=== PATIENT | female | born 1975 | race Caucasian/White ===

== ENCOUNTER 2016-10-18 11:10 | Emergency (ER) | payer SELFPAY ==
[2016-10-18] MEDS ORDERED: RX INFO: IV CONTRAST WAS GIVEN 1 EACH MISC MISCELLANE PRN (12:01)
[2016-10-18 12:29] LABS: Basophils % (A) 0 %; CH 29.4; CHCM 33.6; Eosinophils # (A) 0.1 k/uL (0-0.7); Eosinophils % (A) 1 %; HCT 37.7 % (34.0-46.0); HDW 2.54; HGB 12.3 gm/dL (11.4-16.0); Luc # (Auto) 0.07; Luc % (Auto) 1; Lymphocytes # (A) 1.2 k/uL (1.0-4.8); Lymphocytes % (A) 15 %; MCH 28.8 pg (25.0-35.0); MCHC 32.6 g/dL (31.0-37.0); MCV 88.1 fL (80.0-100.0); Monocytes # (A) 0.4 k/uL (0-1.0); Monocytes % (A) 5 %; Neutrophils % (A) 78 %; RBC 4.28 m/uL (3.80-5.40); RDW 12.9 % (11.5-15.5); WBC 7.7 k/uL (3.8-10.6); WBC (Perox) 8.21
[2016-10-18 12:37] LABS: Potassium 4.5 mmol/L (3.5-5.1)
[2016-10-18 12:40] LABS: Blood Urea Nitrogen 9 mg/dL (7-17); Carbon Dioxide 25 mmol/L (22-30); Chloride 106 mmol/L (98-107); Glucose 90 mg/dL (74-99); Non-African American GFR(MDRD) >60 (>60 ml/min/1.73 sqM)
[2016-10-18 12:41] LABS: Anion Gap 10 mmol/L; Sodium 141 mmol/L (137-145)
--- NOTE | 2016-10-18 12:55 | CT ---
EXAMINATION TYPE: CT soft tissue neck w con DATE OF EXAM: 10/18/2016 12:44 PM COMPARISON: NONE HISTORY: Tooth infection. Right sided jaw pain and swelling CT DLP: 259.20 mGycm Automated exposure control for dose reduction was used. CONTRAST: CT scan of the neck is performed following with IV Contrast, patient injected with 100 ml mL of Omnip aque 300. Axial images are obtained, coronal and sagittal reformatted images are reviewed. FINDINGS: Left thyroid lobe is somewhat diminutive in size and there is a 1 cm nodule within the right lobe of thyroid. Late. Shotty adenopathy seen in the carotid space and submandibular space. Submandibular glands have a normal appearance in the parotid glands demonstrate a normal symmetric ap pearance. Intracranial, intraorbital and retropharyngeal soft tissue structures are symmetric. Minimal changes of chronic sinusitis. Airways patent. Vocal cords have a normal appearance. No abnormal enhancement seen to suggest abscess. IMPRESSION: 1. No acute process. 2. Right thyroid nodule measuring approximately 1 cm there is asymmetric soft tissue tissue edema and ill definition of fat along the right mandible. Correlate for a cellulitis. No definite abscess..
[2016-10-18] MEDS ORDERED: BUPIVACAIN-EPI 0.5%-1:200,000 30 ML VIAL SQ STA (13:32)
--- NOTE | 2016-10-18 14:27 | ED ---
ENT HPI - General Chief complaint: Dental/Oral Stated complaint: tooth pain Time Seen by Provider: 10/18/16 11:26 Source: patient Mode of arrival: ambulatory Limitations: no limitations - History of Present Illness Initial comments: 41-year-old female presented for evaluation of dental pain that started yesterday. She states that the pain is from a tooth on her right lower row at a tooth with previous cavitary lesions. She states yesterday morning she felt fine but throughout the evening she started to have pain in the area. This morning when she woke up there was swelling to her right jaw and increased pain at the tooth. She states that when she looks at the tooth there is no drainage from area and she is unable to palpate a fluctuant area inside the mouth. She denies any tooth fracture and states that she does have a dentist but hasn't seen him in some time. She denies fevers, chills, nausea, vomiting. - Related Data Previous Rx's Medication Instructions Recorded HYDROcodone/APAP 5-325MG [Madison 1 - 2 tab PO Q6HR PRN #14 tab 10/18/16 5-325] Ibuprofen [Motrin] 800 mg PO Q8HR PRN #20 tab 10/18/16 Penicillin V Potassium [Pen Vee K] 500 mg PO QID #28 tab 10/18/16 Allergies Allergy/AdvReac Type Severity Reaction Status Date / Time No Known Allergies Allergy Verified 10/18/16 12:22 Review of Systems ROS Statement: Those systems with pertinent positive or pertinent negative responses have been documented in the HPI. ROS Other: All systems not noted in ROS Statement are negative. Constitutional: Denies: fever, chills, weakness Eyes: Denies: eye pain, eye discharge, vision change ENT: Reports: dental pain. Denies: ear pain, throat pain Respiratory: Denies: cough, dyspnea Cardiovascular: Denies: chest pain, palpitations Gastrointestinal: Denies: abdominal pain, nausea, vomiting Genitourinary: Denies: urgency, dysuria Musculoskeletal: Denies: back pain, myalgia Skin: Denies: rash, lesions Neurological: Denies: headache, weakness Past Medical History Past Medical History: No Reported History History of Any Multi-Drug Resistant Organisms: None Reported Past Surgical History: Tubal Ligation Past Psychological History: No Psychological Hx Reported Smoking Status: Current every day smoker Past Alcohol Use History: Rare Past Drug Use History: None Reported General Exam Limitations: no limitations General appearance: alert, in no apparent distress Head exam: Present: atraumatic, normocephalic Eye exam: Present: normal appearance, PERRL, EOMI Pupils: Present: normal accommodation Expanded Mouth exam: Absent: drooling, trismus, muffled voice Teeth exam: Present: dental caries (Tooth #25 with cavity), dental tenderness # . Absent: fractured tooth # Throat exam: normal inspection Neck exam: Present: normal inspection. Absent: tenderness Respiratory exam: Present: normal lung sounds bilaterally, respiratory distress Cardiovascular Exam: Present: regular rate, normal rhythm GI/Abdominal exam: Present: soft. Absent: distended, tenderness Rectal exam: Present: deferred Neurological exam: Present: alert, altered, oriented X3 Skin exam: Present: warm, dry, intact Course Vital Signs 10/18/16 10/18/16 11:22 14:43 Temperature 97.7 F 98.0 F Pulse Rate 68 79 Respiratory 16 18 Rate Blood Pressure 124/58 121/66 O2 Sat by Pulse 98 98 Oximetry Medical Decision Making - Medical Decision Making 41-year-old female presenting for evaluation of tooth #25 dental pain with swelling to the surrounding soft tissue since yesterday evening. She states that the cavity is been there for some time and that she has a dentist but hasn't been seen for this specific condition. She denies any dental fracture or preceding trauma. Inspection does reveal a large and discolored cavity to the tooth and there is swelling and mild erythema and swelling to the tissue of the cheek and jaw. On palpation it is hard to appreciate any fluctuation but given the etiology will obtain a CT neck with IV contrast and obtain basic labs. She will also be given a inferior alveolar nerve block for pain control. Labs revealed no significant abnormalities and CT neck with IV contrast showed Soft tissue edema and ill-definition of fat along the right mandible. Reevaluation revealed resolution of her symptoms entirely. Given no identifiable abscess we'll discharge patient with pain control and Pen-Vee K antibiotics and instructions to follow-up with her primary care physician and dentist. She is further advised to return to this facility if her symptoms should worsen or persist including but not limited to: Worsening/intractable pain, abscess formation with fluctuance, worsening fever, extension of pain throughout the head, altered mental status, shortness breath, chest pain. The patient acknowledged an understanding of this information and agreed with this plan of care. - Lab Data Result diagrams: 10/18/16 12:22 10/18/16 12:22 Lab Results 10/18/16 10/18/16 Range/Units 12:22 12:22 WBC 7.7 (3.8-10.6) k/uL RBC 4.28 (3.80-5.40) m/uL Hgb 12.3 (11.4-16.0) gm/dL Hct 37.7 (34.0-46.0) % MCV 88.1 (80.0-100.0) fL MCH 28.8 (25.0-35.0) pg MCHC 32.6 (31.0-37.0) g/dL RDW 12.9 (11.5-15.5) % Plt Count 220 (150-450) k/uL Neutrophils % 78 % Lymphocytes % 15 % Monocytes % 5 % Eosinophils % 1 % Basophils % 0 % Neutrophils # 6.0 (1.3-7.7) k/uL Lymphocytes # 1.2 (1.0-4.8) k/uL Monocytes # 0.4 (0-1.0) k/uL Eosinophils # 0.1 (0-0.7) k/uL Basophils # 0.0 (0-0.2) k/uL Sodium 141 (137-145) mmol/L Potassium 4.5 (3.5-5.1) mmol/L Chloride 106 (98-107) mmol/L Carbon Dioxide 25 (22-30) mmol/L Anion Gap 10 mmol/L BUN 9 (7-17) mg/dL Creatinine 0.62 (0.52-1.04) mg/dL Est GFR (MDRD) Af Amer >60 (>60 ml/min/1.73 sqM) Est GFR (MDRD) Non-Af >60 (>60 ml/min/1.73 sqM) Glucose 90 (74-99) mg/dL Calcium 9.0 (8.4-10.2) mg/dL Disposition Clinical Impression: Dental infection, Dental caries Disposition: HOME SELF-CARE Condition: Stable Instructions: Dental Caries (ED), Dental Abscess (ED) Additional Instructions: Please use medication as discussed. Please follow up with family doctor if symptoms have not improved over the next two days. Please return to the emergency room if your symptoms increase or worsen or for any other concerns. Prescriptions: HYDROcodone/APAP 5-325MG [Madison 5-325] 1 - 2 tab PO Q6HR PRN #14 tab PRN Reason: Analgesia Ibuprofen [Motrin] 800 mg PO Q8HR PRN #20 tab PRN Reason: Analgesia Penicillin V Potassium [Pen Vee K] 500 mg PO QID #28 tab Referrals: None,Stated [Primary Care Provider] - 1-2 days Time of Disposition: 14:27
[2016-10-18 14:44] VITALS: BP 121/66; PULSE 79; RESP 18; TEMP 98
== END 2016-10-18 14:44 | disposition home or self-care (01) ==
LOC: EC 11:10
DX: K04.7 Periapical abscess without sinus (principal); K02.9 Dental caries, unspecified; F17.200 Nicotine dependence, unspecified, uncomplicated
CPT/HCPCS: 36415; 80048; 85025; 70491; 64400; 99283; Q9967

== ENCOUNTER 2017-06-12 18:20 | Emergency (ER) | payer OTHER ==
[2017-06-12] MEDS ORDERED: ACETAMINOPHEN TAB 500 MG TAB PO STA (19:03)
--- NOTE | 2017-06-12 19:40 | ED ---
Head Injury HPI - General Chief complaint: Head Injury Stated complaint: fall/hit head Time Seen by Provider: 06/12/17 18:42 Source: patient Mode of arrival: ambulatory Limitations: no limitations - History of Present Illness Initial comments: 41-year-old female patient presents to emergency department today for evaluation after expressing a fall down the stairs. Patient states this occurred approximately 2 hours ago. She states that she was coming down the stairs, missed one step with her foot and fell backwards striking her head on one of the steps. She states that she did have a blackout episode for a few seconds however came around quickly. She states that since then she has had a headache, has felt nauseated, and has been feeling tired. She describes the headache as throbbing. She states that the back of her head is very tender to the touch. She denies any other injuries. She denies any dizziness, weakness, blurred or double vision. Patient denies any neck pain, back pain, chest pain, shortness of breath, dizziness, weakness, numbness, tingling, abdominal pain, nausea, vomiting, or difficulties with bowel movements or urination. - Related Data Home Medications Medication Instructions Recorded Confirmed No Known Home Medications [No 06/12/17 06/12/17 Known Home Medications] Allergies/Adverse reactions: Allergies Allergy/AdvReac Type Severity Reaction Status Date / Time No Known Allergies Allergy Verified 06/12/17 19:08 Review of Systems ROS Statement: Those systems with pertinent positive or pertinent negative responses have been documented in the HPI. ROS Other: All systems not noted in ROS Statement are negative. Past Medical History Past Medical History: No Reported History History of Any Multi-Drug Resistant Organisms: None Reported Past Surgical History: Tubal Ligation Past Psychological History: No Psychological Hx Reported Smoking Status: Current every day smoker Past Alcohol Use History: Rare Past Drug Use History: None Reported General Exam Limitations: no limitations General appearance: alert, in no apparent distress, other (Well-developed, well- nourished adult female in no acute distress. She is alert, interactive and acutely responsive. Vital signs upon presentation were temperature 98.2F, pulse 80, respirations 20, blood pressure 130/60, pulse ox 98% on room air.) Head exam: Present: normocephalic, normal inspection Eye exam: Present: normal appearance, PERRL, EOMI. Absent: scleral icterus, conjunctival injection, periorbital swelling ENT exam: Present: normal exam, normal oropharynx, mucous membranes moist, TM's normal bilaterally (No hemotympanum.), other (No evidence of whitehead sign.) Neck exam: Present: normal inspection, full ROM, other (Nontender, no step-off, no deformity to firm midline palpation of the posterior cervical spine. Full range of motion without pain or limitation.). Absent: tenderness, meningismus, lymphadenopathy Respiratory exam: Present: normal lung sounds bilaterally. Absent: respiratory distress, wheezes, rales, rhonchi, stridor Cardiovascular Exam: Present: regular rate, normal rhythm, normal heart sounds. Absent: systolic murmur, diastolic murmur, rubs, gallop, clicks GI/Abdominal exam: Present: soft, normal bowel sounds. Absent: distended, tenderness, guarding, rebound, rigid Extremities exam: Present: normal inspection, full ROM, normal capillary refill , other (No pelvic tenderness, or pain with compression.). Absent: tenderness, pedal edema, joint swelling, calf tenderness Back exam: Present: normal inspection, other (Nontender, no step-off, no deformity to firm midline palpation of the thoracic and lumbar vertebrae. Full range of motion without pain or limitation.). Absent: tenderness, vertebral tenderness Neurological exam: Present: alert, oriented X3, CN II-XII intact Psychiatric exam: Present: normal affect, normal mood Skin exam: Present: warm, dry, intact, normal color. Absent: rash Course Vital Signs 06/12/17 06/12/17 18:22 21:22 Temperature 98.2 F 98.3 F Pulse Rate 80 68 Respiratory 20 16 Rate Blood Pressure 130/60 135/60 O2 Sat by Pulse 98 98 Oximetry Medical Decision Making - Medical Decision Making 41-year-old female patient presents to emergency department today for evaluation of headache and nausea after a fall, with head injury, with loss of consciousness. Patient's neurological exam is unremarkable. She did have some tenderness over the posterior scalp. CT of the brain and C-spine were performed and showed no acute intracranial or cervical spine abnormalities. Patient is feeling better. She was educated regarding concussion. She is instructed to limit physically and mentally simulating activities. She is instructed to monitor for signs of worsening head injury. She is instructed to follow-up with her primary care physician for recheck in 1-2 days. She is instructed to return here immediately for any new, worsening, or concerning symptoms. Patient verbalizes understanding and agrees with this plan. - Radiology Data Radiology results: report reviewed, image reviewed CT scanning of the head and cervical spine are performed without contrast. Findings show no acute intracranial hemorrhage, mass effect, or midline shift. The ventricles and sulci are within normal limits in size. The globes are intact in the visualized sinuses are clear. Cervical spine is visualized in its entirety from C1 through the upper thoracic levels and demonstrate satisfactory alignment without evidence of acute fracture or dislocation. Prevertebral soft tissue appears within normal limits. The C1 to C2 articulation is unremarkable. Impression by Dr. Master Mora shows there is no acute fracture or dislocation evident in the cervical spine. No acute intracranial hemorrhage, mass effect, or midline shift is seen. Disposition Clinical Impression: Concussion Disposition: HOME SELF-CARE Condition: Good Instructions: Concussion (ED) Additional Instructions: Monitor for signs of worsening head injury including but not limited to vomiting , confusion, dizziness, weakness, or any other concerns. Avoid any physically or mentally simulating activities. Take ibuprofen or Tylenol for pain control. Follow-up with her primary care physician for recheck in 1-2 days. Return here immediately for any new, worsening, or concerning symptoms. Referrals: None,Stated [Primary Care Provider] - 1-2 days Time of Disposition: 21:09
--- NOTE | 2017-06-12 20:42 | CT ---
EXAMINATION TYPE: CT brain allison chu con DATE OF EXAM: 06/12/2017 COMPARISON: 10/18/2016 HISTORY: Fall with posterior head injury. CT DLP: 1233.30 mGycm. Automated exposure control for dose reduction was used. TECHNIQUE: CT scan of the head and cervical spine are performed without contrast. FINDINGS: There is no acute intracranial hemorrhage, mass effect, or midline shift identified. The ventricles and sulci are within normal limits in size. The globes are intact and the visualized sinu ses are clear. Cervical spine is visualized in its entirety from C1 through upper thoracic levels and demonstrates s atisfactory alignment without evidence of acute fracture or dislocation. Prevertebral soft tissue ap pears within normal limits. The C1-C2 articulation is unremarkable. IMPRESSION: 1. There is no acute fracture or dislocation evident in the cervical spine. 2. No acute intracranial hemorrhage, mass effect, or midline shift is seen.
[2017-06-12 21:22] VITALS: BP 135/60; PULSE 68; RESP 16; TEMP 98.3
== END 2017-06-12 21:22 | disposition home or self-care (01) ==
LOC: EC 18:20
DX: S06.0X0A Concussion without loss of consciousness, initial encounter (principal); F17.200 Nicotine dependence, unspecified, uncomplicated; W10.9XXA Fall (on) (from) unspecified stairs and steps, initial encounter
CPT/HCPCS: 70450; 72125; 99284

== ENCOUNTER 2017-06-18 09:00 | Emergency (ER) | payer OTHER ==
[2017-06-18 09:11] VITALS: BP 119/58; PULSE 79; RESP 16; TEMP 97.9
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
--- NOTE | 2017-06-18 09:44 | XR ---
EXAMINATION TYPE: XR hand complete RT DATE OF EXAM: 06/18/2017 CLINICAL HISTORY: Right hand contusion TECHNIQUE: Frontal, lateral and oblique images of the right hand are obtained. COMPARISON: None. FINDINGS: There is no acute fracture/dislocation evident in the right hand. The joint spaces in the right hand appear within normal limits. The overlying soft tissue appears unremarkable. IMPRESSION: There is no acute fracture or dislocation in the right hand.
== END 2017-06-18 10:03 | disposition home or self-care (01) ==
LOC: EC 09:00
DX: S60.221A Contusion of right hand, initial encounter (principal); F17.200 Nicotine dependence, unspecified, uncomplicated; V23.4XXA Motorcycle driver injured in collision with car, pick-up truck or van in traffic accident, initial encounter; Y93.55 Activity, bike riding
CPT/HCPCS: 99283

== ENCOUNTER 2024-03-14 07:20 | Emergency (ER) | payer OTHER ==
--- NOTE | 2024-03-14 07:48 | ED ---
Nausea/Vomiting/Diarrhea HPI - General Chief complaint: Nausea/Vomiting/Diarrhea Stated complaint: back pain,fever Time Seen by Provider: 03/14/24 07:30 Source: patient, RN notes reviewed Mode of arrival: ambulatory Limitations: no limitations - History of Present Illness Initial comments: This is a 48-year-old female who presents to the emergency department for fevers, nausea, and vomiting. States that last night she started to develop chills, congestion, a sore throat, and vomiting. She only threw up once last night and is unsure if the sore throat was related to that versus something else. She proceeded to vomit again this morning. She also started to develop generalized discomfort in her lower back. Denies any radiation of pain into the abdomen. Pain is not worse in any particular side of the back. Also denies any urinary symptoms. MD complaint: nausea, vomiting - Related Data Previous Rx's Medication Instructions Recorded Amoxic-Pot Clav 875-125Mg 1 tab PO Q12HR 10 Days #20 tab 03/14/24 [Augmentin 875-125] Ondansetron Odt [Zofran Odt] 4 mg PO Q8HR PRN #20 tab 03/14/24 Allergies Allergy/AdvReac Type Severity Reaction Status Date / Time No Known Allergies Allergy Verified 03/14/24 07:30 Review of Systems ROS Statement: Those systems with pertinent positive or pertinent negative responses have been documented in the HPI. ROS Other: All systems not noted in ROS Statement are negative. Past Medical History Past Medical History: No Reported History History of Any Multi-Drug Resistant Organisms: None Reported Past Surgical History: Tubal Ligation Past Psychological History: No Psychological Hx Reported Smoking Status: Current every day smoker Past Alcohol Use History: Rare Past Drug Use History: None Reported General Exam Limitations: no limitations General appearance: alert, in no apparent distress Head exam: Present: atraumatic, normocephalic, normal inspection ENT exam: Present: other (Posterior pharyngeal erythema with tonsillar hypertrophy and exudates) Respiratory exam: Present: normal lung sounds bilaterally. Absent: respiratory distress, wheezes, rales, rhonchi, stridor Cardiovascular Exam: Present: regular rate, normal rhythm, normal heart sounds. Absent: systolic murmur, diastolic murmur, rubs, gallop, clicks GI/Abdominal exam: Present: soft, normal bowel sounds. Absent: distended, tenderness, guarding, rebound, rigid Back exam: Absent: CVA tenderness (R), CVA tenderness (L) Neurological exam: Present: alert, oriented X3, CN II-XII intact Psychiatric exam: Present: normal affect, normal mood Skin exam: Present: warm, dry, intact, normal color. Absent: rash Course Vital Signs 03/14/24 03/14/24 03/14/24 07:27 09:01 10:35 Temperature 100.8 F H 99.8 F H 99.7 F H Pulse Rate 122 H 96 86 Respiratory 20 16 16 Rate Blood Pressure 126/69 122/61 119/65 O2 Sat by Pulse 97 97 97 Oximetry Medical Decision Making - Medical Decision Making This is a 48-year-old female who presents to the emergency department for fevers, nausea, and vomiting. Was pt. sent in by a medical professional or institution? @ -No Did you speak to anyone other than the patient for history? @ -No Did you review nursing and triage notes? @ -Yes, and I agree, it is accurate with regards to the patient's symptoms. Were old charts reviewed? @ -No Differential Diagnosis? @ -Differential Fever: Pneumonia, viral URI, endocarditis, myocarditis, pericarditis, otitis, sinusitis, peritonsillar Abscess, retropharyngeal Abscess, epiglottitis, peritonitis, appendicitis, Tammy cystitis, diverticulitis, hepatitis, colitis, UTI, PID, TOA, pyelonephritis, prostatitis, epididymitis, meningitis, encephalitis, pulmonary embolism, CVA, thyroid storm, pancreatitis, adrenal crisis, cavernous sinus thrombosis, this is not meant to be an all-inclusive list. EKG interpreted by me (3pts min.)? @ -Not obtained X-rays interpreted by me (1pt min.)? @ -Not obtained CT interpreted by me (1pt min.)? @ -Not obtained U/S interpreted by me (1pt. min.)? @ -Not obtained What testing was considered but not performed? (CT, X-rays, U/S, labs)? Why? @ -None What meds were considered but not given? Why? @ -None Did you discuss the management of the patient with other professionals? @ -No Did you reconcile home meds? @ -No Was smoking cessation discussed for >3mins.? @ -I discussed smoking cessation for greater than 3 minutes. The risk of smoking were discussed with the patient including but not limited to risks of cancer, stroke, coronary artery disease and COPD. Also discussed with patient were multiple methods of quitting smoking. Lastly we discussed the financial cost of smoking. Was critical care preformed (if so, how long)? @ -No Were there social determinants of health that impacted care today? How? (Homelessness, low income, unemployed, alcoholism, drug addiction, transportation, low edu. Level, literacy, decrease access to med. care, retirement, rehab)? @ -No Was there de-escalation of care discussed even if they declined? (Discuss DNR or withdrawal of care, Hospice)? @ -No What co-morbidities impacted this encounter? (DM, HTN, Smoking, COPD, CAD, Cancer, CVA, Hep., AIDS, mental health diagnosis, sleep apnea, morbid obesity)? @ -Smoking Was patient admitted / discharged? @ -Discharged. Patient was tachycardic and febrile on arrival with a temperature 100.8 F. She was given IV fluids, Zofran, Ofirmev, and Toradol. Lab work demonstrates leukocytosis with a white blood cell count of 15.5 and was otherwise unremarkable. Urinalysis is potentially suggestive of infection and urine was sent for culture. Rapid strep test positive as well. COVID, influenza, and RSV testing negative. Symptoms were well controlled in the emergency department and she was tolerating oral intake. 1 g of ceftriaxone administered in the emergency department. Prescription for Augmentin and Zofran provided with dosing instructions reviewed for management of strep throat and UTI. Advised ibuprofen and Tylenol as needed for any additional fevers and follow-up with her primary care provider. Undiagnosed new problem with uncertain prognosis? @ -None Drug Therapy requiring intensive monitoring for toxicity (Heparin, Nitro, Insulin, Cardizem)? @ -None Were any procedures done? @ -None Diagnosis/symptom? @ -UTI, strep pharyngitis Acute, or Chronic, or Acute on Chronic? @ -Acute Uncomplicated (without systemic symptoms) or Complicated (systemic symptoms)? @ -Complicated Side effects of treatment? @ -None Exacerbation, Progression, or Severe Exacerbation] @ -Not applicable Poses a threat to life or bodily function? @ -No Return precautions reviewed in depth, the patient is instructed to return to the emergency department with any new, worsening, or concerning symptoms. Patient verbalized understanding. This case was discussed in detail with the attending ED physician, Dr. Cuevas. Presentation, findings, and treatment plan discussed in detail as well. - Lab Data Result diagrams: 03/14/24 08:28 03/14/24 08:28 Lab Results 03/14/24 03/14/24 03/14/24 Range/Units 08:28 08:28 08:28 WBC 15.5 H (3.8-10.6) k/uL RBC 4.86 (3.80-5.40) m/uL Hgb 13.9 (11.4-16.0) gm/dL Hct 42.6 (34.0-46.0) % MCV 87.8 (80.0-100.0) fL MCH 28.6 (25.0-35.0) pg MCHC 32.6 (31.0-37.0) g/dL RDW 13.0 (11.5-15.5) % Plt Count 202 (150-450) k/uL MPV 8.7 Neutrophils % 86 % Lymphocytes % 8 % Monocytes % 4 % Eosinophils % 1 % Basophils % 0 % Neutrophils # 13.2 H (1.3-7.7) k/uL Lymphocytes # 1.2 (1.0-4.8) k/uL Monocytes # 0.7 (0-1.0) k/uL Eosinophils # 0.2 (0-0.7) k/uL Basophils # 0.0 (0-0.2) k/uL Sodium 137 (137-145) mmol/L Potassium 3.4 L (3.5-5.1) mmol/L Chloride 106 (98-107) mmol/L Carbon Dioxide 23 (22-30) mmol/L Anion Gap 8 mmol/L BUN 8 (7-17) mg/dL Creatinine 0.66 (0.52-1.04) mg/dL Est GFR (CKD-EPI)AfAm >90 (>60 ml/min/1.73 sqM) Est GFR (CKD-EPI)NonAf >90 (>60 ml/min/1.73 sqM) Glucose 134 H (74-99) mg/dL Plasma Lactic Acid Giuliano (0.7-2.0) mmol/L Calcium 9.3 (8.4-10.2) mg/dL Total Bilirubin 0.5 (0.2-1.3) mg/dL AST 25 (14-36) U/L ALT 17 (4-34) U/L Alkaline Phosphatase 108 (38-126) U/L Total Protein 7.3 (6.3-8.2) g/dL Albumin 4.0 (3.5-5.0) g/dL Amylase 42 (30-110) U/L Lipase 22 L (23-300) U/L Urine Color Yellow Urine Appearance Turbid H (Clear) Urine pH 6.0 (5.0-8.0) Ur Specific [place] 1.023 (1.001-1.035) Urine Protein 1+ H (Negative) Urine Glucose (UA) Negative (Negative) Urine Ketones Trace H (Negative) Urine Blood Small H (Negative) Urine Nitrite Negative (Negative) Urine Bilirubin Negative (Negative) Urine Urobilinogen <2.0 (<2.0) mg/dL Ur Leukocyte Esterase Small H (Negative) Urine RBC 3 (0-5) /hpf Ur Squamous Epith Cells 13 H (0-4) /hpf Amorphous Sediment Rare H (None) /hpf Urine Bacteria Occasional H (None) /hpf Urine Mucus Many H (None) /hpf Urine Yeast (Budding) Many H (None) /hpf Influenza Type A (PCR) (Not Detectd) Influenza Type B (PCR) (Not Detectd) RSV (PCR) (Not Detectd) SARS-CoV-2 (PCR) (Not Detectd) Group A Strep (PCR) (Not Detectd) 03/14/24 03/14/24 03/14/24 Range/Units 08:28 08:28 08:28 WBC (3.8-10.6) k/uL RBC (3.80-5.40) m/uL Hgb (11.4-16.0) gm/dL Hct (34.0-46.0) % MCV (80.0-100.0) fL MCH (25.0-35.0) pg MCHC (31.0-37.0) g/dL RDW (11.5-15.5) % Plt Count (150-450) k/uL MPV Neutrophils % % Lymphocytes % % Monocytes % % Eosinophils % % Basophils % % Neutrophils # (1.3-7.7) k/uL Lymphocytes # (1.0-4.8) k/uL Monocytes # (0-1.0) k/uL Eosinophils # (0-0.7) k/uL Basophils # (0-0.2) k/uL Sodium (137-145) mmol/L Potassium (3.5-5.1) mmol/L Chloride (98-107) mmol/L Carbon Dioxide (22-30) mmol/L Anion Gap mmol/L BUN (7-17) mg/dL Creatinine (0.52-1.04) mg/dL Est GFR (CKD-EPI)AfAm (>60 ml/min/1.73 sqM) Est GFR (CKD-EPI)NonAf (>60 ml/min/1.73 sqM) Glucose (74-99) mg/dL Plasma Lactic Acid Giuliano 1.0 (0.7-2.0) mmol/L Calcium (8.4-10.2) mg/dL Total Bilirubin (0.2-1.3) mg/dL AST (14-36) U/L ALT (4-34) U/L Alkaline Phosphatase (38-126) U/L Total Protein (6.3-8.2) g/dL Albumin (3.5-5.0) g/dL Amylase (30-110) U/L Lipase (23-300) U/L Urine Color Urine Appearance (Clear) Urine pH (5.0-8.0) Ur Specific [place] (1.001-1.035) Urine Protein (Negative) Urine Glucose (UA) (Negative) Urine Ketones (Negative) Urine Blood (Negative) Urine Nitrite (Negative) Urine Bilirubin (Negative) Urine Urobilinogen (<2.0) mg/dL Ur Leukocyte Esterase (Negative) Urine RBC (0-5) /hpf Ur Squamous Epith Cells (0-4) /hpf Amorphous Sediment (None) /hpf Urine Bacteria (None) /hpf Urine Mucus (None) /hpf Urine Yeast (Budding) (None) /hpf Influenza Type A (PCR) Not Detected (Not Detectd) Influenza Type B (PCR) Not Detected (Not Detectd) RSV (PCR) Not Detected (Not Detectd) SARS-CoV-2 (PCR) Not Detected (Not Detectd) Group A Strep (PCR) DETECTED A (Not Detectd) Disposition Clinical Impression: Nicotine dependence, UTI (urinary tract infection), Strep pharyngitis Disposition: HOME SELF-CARE Instructions (If sedation given, give patient instructions): Urinary Tract Infection in Women (ED), Strep Throat (ED), Acute Nausea and Vomiting (ED) Additional Instructions: Return to the emergency department with any new, worsening, or concerning symptoms. Take the antibiotic as prescribed for 10 days. Take the Zofran up to every 8 hours as needed for nausea and vomiting. Alternate with ibuprofen and Tylenol as needed for any additional fevers or discomfort. Slowly advance your diet as tolerated and remain well-hydrated. Follow up with your primary care provider in 1-2 days. Prescriptions: Amoxic-Pot Clav 875-125Mg [Augmentin 875-125] 1 tab PO Q12HR 10 Days #20 tab Ondansetron Odt [Zofran Odt] 4 mg PO Q8HR PRN #20 tab PRN Reason: Nausea And Vomiting Is patient prescribed a controlled substance at d/c from ED?: No Referrals: None,Stated [Primary Care Provider] - 1-2 days Time of Disposition: 09:32
[2024-03-14] MEDS: SODIUM CHLORIDE 0.9% 1,000 ML IV STA (08:38)
[2024-03-14 08:44] LABS: Amorphous Sediment,Urine Rare /hpf; Appearance,Urine Turbid (Clear); Bacteria,Urine Occasional /hpf; Bilirubin,Urine Negative (Negative); Blood,Urine Small (Negative); Budding Yeast,Urine Many /hpf; Color,Urine Yellow; Glucose,Urine (UA) Negative (Negative); Ketones,Urine Trace (Negative); Leukocyte Esterase,Urine Small (Negative); Mucus,Urine Many /hpf; Nitrite,Urine Negative (Negative); Protein,Urine 1+ (Negative); RBC,Urine 3 /hpf (0-5); Specific Gravity,Urine 1.023 (1.001-1.035); Squamous Epithelial Cell,Urine 13 /hpf (0-4); Urobilinogen,Urine <2.0 mg/dL (<2.0)
[2024-03-14] MEDS: ONDANSETRON 4 MG/2 ML VIAL IVP STA (08:44)
[2024-03-14] MEDS: KETOROLAC 15 MG/ML 1 ML VIAL IVP STA (08:50)
[2024-03-14 08:55] LABS: ALT 17 U/L (4-34); AST 25 U/L (14-36); African American GFR (CKD) >90 (>60 ml/min/1.73 sqM); Alkaline Phosphatase 108 U/L (38-126); Amylase 42 U/L (30-110); Anion Gap 8 mmol/L; Basophils % (A) 0 %; Blood Urea Nitrogen 8 mg/dL (7-17); Calcium 9.3 mg/dL (8.4-10.2); Carbon Dioxide 23 mmol/L (22-30); Chloride 106 mmol/L (98-107); Eosinophils # (A) 0.2 k/uL (0-0.7); Eosinophils % (A) 1 %; Glucose 134 mg/dL (74-99); HCT 42.6 % (34.0-46.0); HGB 13.9 gm/dL (11.4-16.0); Lipase 22 U/L (23-300); Lymphocytes # (A) 1.2 k/uL (1.0-4.8); Lymphocytes % (A) 8 %; MCH 28.6 pg (25.0-35.0); MCHC 32.6 g/dL (31.0-37.0); MCV 87.8 fL (80.0-100.0); Mean Platelet Volume 8.7; Monocytes # (A) 0.7 k/uL (0-1.0); Monocytes % (A) 4 %; Neutrophils # (A) 13.2 k/uL (1.3-7.7); Neutrophils % (A) 86 %; Non-African American GFR(CKD) >90 (>60 ml/min/1.73 sqM); Platelet Count 202 k/uL (150-450); Potassium 3.4 mmol/L (3.5-5.1); RBC 4.86 m/uL (3.80-5.40); Sodium 137 mmol/L (137-145); Total Bilirubin 0.5 mg/dL (0.2-1.3); Total Protein 7.3 g/dL (6.3-8.2); WBC 15.5 k/uL (3.8-10.6)
[2024-03-14] MEDS: ACETAMINOPHEN IV (For NPO) 1,000 MG in EMPTY BAG 1 BAG IVPB STA (08:55)
[2024-03-14 09:02] VITALS: RESP 16
[2024-03-14] MEDS: cefTRIAXone IN SWFI 1,000 MG/10 ML SYRINGE IVP STA (10:27)
[2024-03-14 10:43] VITALS: BP 119/65; PULSE 86; TEMP 99.7
== END 2024-03-14 10:45 | disposition home or self-care (01) ==
LOC: EC 07:20
DX: F17.200 Nicotine dependence, unspecified, uncomplicated (principal); N39.0 Urinary tract infection, site not specified; J02.0 Streptococcal pharyngitis; B95.0 Streptococcus, group A, as the cause of diseases classified elsewhere
CPT/HCPCS: 99284; 96365; 96375 ×3; 36415; 87651; 80053; 82150; 83605; 83690; 85025; 81001; 87086; 87636; 99406; J2405; J0696; J0131; J1885